=== PATIENT | female | born 1995 | race Caucasian/White ===

== ENCOUNTER 2023-01-31 08:03 | Outpatient (CLI) | payer BC, SELFPAY | END 2023-01-31 08:04 | disposition home or self-care (01) | LOC: NFLDREF 02-02 04:15 | PROVIDERS: PCP Physician Assistant Medical; Referring Provider Physician Assistant Medical; Visit Provider Physician Assistant Medical | DX: Z00.00 Encounter for general adult medical examination without abnormal findings (principal); R03.0 Elevated blood-pressure reading, without diagnosis of hypertension; F41.9 Anxiety disorder, unspecified; Z13.6 Encounter for screening for cardiovascular disorders | CPT/HCPCS: 80048; 80061 ==

== ENCOUNTER 2023-02-05 12:47 | Outpatient (CLI) | payer BC, SELFPAY | END 2023-02-05 12:48 | disposition home or self-care (01) | LOC: LKVREF 12:47 | PROVIDERS: PCP Physician Assistant Medical; Visit Provider Physician Assistant Medical | DX: R03.0 Elevated blood-pressure reading, without diagnosis of hypertension (principal); F41.9 Anxiety disorder, unspecified; F32.A Depression, unspecified | CPT/HCPCS: 84443 ==

== ENCOUNTER 2023-03-08 14:28 | Outpatient (CLI) | payer BC, SELFPAY | END 2023-03-08 14:29 | disposition home or self-care (01) | PROVIDERS: PCP Physician Assistant Medical; Visit Provider Physician Assistant Medical | DX: R03.0 Elevated blood-pressure reading, without diagnosis of hypertension (principal) | CPT/HCPCS: 82088; 83835; 84244 ==